=== PATIENT | male | born 1950 | race Caucasian/White ===

== ENCOUNTER 2020-07-17 15:46 | Observation (INO) | payer MEDICARE ==
[2020-07-17] MEDS ORDERED: Atropine Sulfate 1 mg/10 ml Syringe ONE (16:58)
[2020-07-17 17:29] LABS: #Basophils 0.1 10x3/uL (0.0-0.2); #Eosinphils 0.8 10x3/uL (0.0-0.5); #Monocytes 1.2 10x3/uL (0.0-1.1); #Neutrophils 7.1 10x3/uL (1.5-8.4); %Basophils 0.5 % (0.0-2.0); %Eosinophils 6.9 % (0.0-6.0); %Lymphocytes 16.8 % (18.0-47.0); %Monocytes 10.5 % (0.0-10.0); %Neutrophils 64.8 % (40.0-75.0); Mean Corpuscular HGB CONC 31.4 g/dL (32.0-36.0); Mean Corpuscular Hemoglobin 30.4 pg (27.0-33.0); Mean Corpuscular Volume 96.7 fl (81.2-95.1); Mean Platelet Volume 9.4 fl (7.4-10.4); Platelet Count 309 10x3/uL (150-450); RBC Distribution Width 14.2 % (11.5-14.5); Red Blood Cell (RBC) Count 3.29 10x6/uL (4.32-5.72)
[2020-07-17] MEDS ORDERED: Calcium Gluconate 100 MG/ML 10 ML ONE ×3 (17:33→17:37)
[2020-07-17 17:42] LABS: ALT (SGPT) 20 U/L (8-55); AST (SGOT) 12 U/L (5-34); Albumin 3.5 g/dL (3.4-4.8); Alkaline Phosphatase 85 U/L (40-110); Anion Gap 15 mmol/L (10-20); BUN (Urea Nitrogen) 24 mg/dL (8.4-25.7); Bilirubin, Total 0.2 mg/dL (0.2-1.2); CK (CPK) 25 U/L (30-200); Calc. Creatinine Clearance 0 mL/min (70-130); Calcium 8.6 mg/dL (7.8-10.44); Carbon Dioxide 22 mmol/L (23-31); Chloride 107 mmol/L (98-107); Globulin 2.5 g/dL (2.4-3.5); Glucose 161 mg/dL (80-115); Potassium 4.2 mmol/L (3.5-5.1); Sodium 140 mmol/L (136-145)
[2020-07-17 17:58] LABS: Bilirubin Neg (Negative); Blood, Urine 250 (Negative); Glucose, Urine (Dipstick) 50 mg/dL (Negative); Ketone, Urine 5 mg/dL (Negative); Leukocyte 100 (Negative); Nitrite Negative (Negative); Protein, Urine (Dipstick) 500 mg/dl (Neg-Trace); Urobilinogen Normal mg/dL (Less than 2); pH, Urine 6.5 (5.0-9.0)
[2020-07-17 18:05] LABS: Clarity Turbid (Clear)
[2020-07-17 18:07] LABS: Bacteria/HPF 2+ HPF (None Seen); RBC/HPF Greater than 50 HPF (0-3); Squamous Epithelial 0-3 HPF (0-3); Transitional Epithelial 0-3 HPF (None Seen)
[2020-07-17 18:08] LABS: WBC/HPF 21-50 HPF (0-3)
[2020-07-17] MEDS ORDERED: Acetaminophen 325 MG TAB PO PRN (20:34)
[2020-07-17] MEDS ORDERED: Senokot S 8.6-50 MG TAB PO PRN (20:34)
[2020-07-17] MEDS ORDERED: hydrALAZINE 20 MG/ML VIAL SLOW IVP PRN (20:39)
[2020-07-17] MEDS ORDERED: Sodium Chloride 0.9% 1,000 ML IV SCH (20:45)
[2020-07-17 21:27] LABS: Troponin I Less than 0.010 ng/mL (< 0.028)
[2020-07-17] MEDS: Atorvastatin Calcium 20 MG TAB PO SCH (21:58)
[2020-07-17] MEDS: Tamsulosin HCl 0.4 MG CAP PO SCH (21:58)
[2020-07-17] MEDS: cefTRIAXone\\ROCEPHIN 1 GM in Sodium Chloride 0.9% 100 ML IVPB SCH (21:59)
[2020-07-17 22:40] VITALS: BMI 26.2
[2020-07-17] MEDS ORDERED: Amlodipine 5 MG TAB PO SCH (22:45)
[2020-07-18 05:37] LABS: Anion Gap 12 mmol/L (10-20); BUN (Urea Nitrogen) 18 mg/dL (8.4-25.7); Calc. Creatinine Clearance 58 mL/min (70-130); Calcium 8.3 mg/dL (7.8-10.44); Carbon Dioxide 23 mmol/L (23-31); Chloride 111 mmol/L (98-107); Glucose 144 mg/dL (80-115); Magnesium 1.9 mg/dL (1.6-2.6); Potassium 3.5 mmol/L (3.5-5.1); Sodium 142 mmol/L (136-145)
[2020-07-18 05:47] LABS: #Basophils 0.1 10x3/uL (0.0-0.2); #Eosinphils 0.7 10x3/uL (0.0-0.5); #Monocytes 0.8 10x3/uL (0.0-1.1); #Neutrophils 4.3 10x3/uL (1.5-8.4); %Basophils 0.7 % (0.0-2.0); %Eosinophils 8.7 % (0.0-6.0); %Monocytes 9.8 % (0.0-10.0); %Neutrophils 56.1 % (40.0-75.0); Hemoglobin 9.6 g/dL (13.5-17.5); Mean Corpuscular HGB CONC 31.3 g/dL (32.0-36.0); Mean Corpuscular Hemoglobin 29.7 pg (27.0-33.0); Mean Platelet Volume 9.5 fl (7.4-10.4); Platelet Count 264 10x3/uL (150-450); RBC Distribution Width 14.4 % (11.5-14.5); Red Blood Cell (RBC) Count 3.23 10x6/uL (4.32-5.72); White Blood Cell (WBC) Count 7.7 10x3/uL (3.5-10.5)
[2020-07-18] MEDS: Dronedarone HCl 400 MG TAB PO SCH ×2 (08:45→17:30)
[2020-07-18] MEDS: Aspirin 81 mg Enteric Coated Tablet PO SCH (08:45)
[2020-07-18] MEDS: Finasteride 5 MG TAB PO SCH (08:45)
[2020-07-18] MEDS ORDERED: Amlodipine 5 MG TAB PO SCH ×2 (09:00→17:30)
[2020-07-18] MEDS ORDERED: Meclizine HCl 12.5 MG TAB PO SCH (09:00)
[2020-07-18] MEDS ORDERED: Levothyroxine Sodium 50 MCG TAB PO SCH (09:00)
[2020-07-18] MEDS ORDERED: Timolol 0.5% Ophth Soln 5 ml Bottle EA EYE SCH (09:00)
[2020-07-18] MEDS: Apixaban 5 MG TAB PO SCH ×2 (11:37→22:00)
[2020-07-18] MEDS: Metoprolol Tartrate 25 MG TAB PO SCH ×2 (11:38→21:08)
[2020-07-18 12:58] LABS: SARS-CoV-2 PCR by NAA Not Detected (NotDetected)
[2020-07-18] MEDS: DorzolamidE/Timolol 2%/0.5% Ophth Soln 10 ml Bottle EA EYE SCH (16:18)
[2020-07-18] MEDS: cefTRIAXone\\ROCEPHIN 1 GM in Sodium Chloride 0.9% 100 ML IVPB SCH (21:06)
[2020-07-18] MEDS: Tamsulosin HCl 0.4 MG CAP PO SCH (21:07)
[2020-07-18] MEDS: Atorvastatin Calcium 20 MG TAB PO SCH (21:07)
[2020-07-19] MEDS ORDERED: Levothyroxine Sodium 50 MCG TAB PO SCH (06:00)
[2020-07-19] MEDS: Aspirin 81 mg Enteric Coated Tablet PO SCH (08:09)
[2020-07-19] MEDS: Dronedarone HCl 400 MG TAB PO SCH (08:09)
[2020-07-19] MEDS: Apixaban 5 MG TAB PO SCH (08:09)
[2020-07-19] MEDS: Finasteride 5 MG TAB PO SCH (08:10)
[2020-07-19] MEDS: DorzolamidE/Timolol 2%/0.5% Ophth Soln 10 ml Bottle EA EYE SCH (08:10)
[2020-07-19] MEDS: Metoprolol Tartrate 25 MG TAB PO SCH (08:10)
[2020-07-19] MEDS ORDERED: Amlodipine 10 MG TAB PO SCH (09:00)
[2020-07-19 13:04] VITALS: BP 143/75; TEMP 97.4
== END 2020-07-19 15:47 ==
LOC: CSHERS 15:46 → CSHTELE 20:19
PROVIDERS: ADMIT Student in an Organized Health Care Education/Training Program; ATTEND Family Medicine
DX: I48.91 Unspecified atrial fibrillation (principal); I95.2 Hypotension due to drugs; R00.1 Bradycardia, unspecified; N40.0 Benign prostatic hyperplasia without lower urinary tract symptoms; I69.959 Hemiplegia and hemiparesis following unspecified cerebrovascular disease affecting unspecified side; E11.22 Type 2 diabetes mellitus with diabetic chronic kidney disease; I12.9 Hypertensive chronic kidney disease with stage 1 through stage 4 chronic kidney disease, or unspecified chronic kidney disease; N18.32 Chronic kidney disease, stage 3b; D63.1 Anemia in chronic kidney disease; Z79.899 Other long term (current) drug therapy; Z20.822 Contact with and (suspected) exposure to COVID-19
CPT/HCPCS: 71045; 80048; 82550; 83605; 83735; 84443; 84484 ×3; 85025; 87077; 87086; 87186; 93005 ×2; 93306; 96374; 96375 ×2; 96376; 97139; 97530; 99285; G0378 ×4; U0003; U0005; 80053; 81003; 81015; 87635; 93010; J0461; J0610; J0696; J3490